=== PATIENT | male | born 1950 | race Caucasian/White ===

== ENCOUNTER → 2016-05-12 | Outpatient (CLI) | payer BC ==
[~2016-05-12] MED LIST: LISI10TA PO; PRLSR20 PO
== END | disposition home or self-care (01) ==
LOC: C.LAB1850 12:10
PROVIDERS: ATTEND Urology
DX: N40.1 Benign prostatic hyperplasia with lower urinary tract symptoms (principal)

== ENCOUNTER → 2016-05-16 | Outpatient (CLI) | payer BC | END | disposition home or self-care (01) | LOC: C.LABSPEC 17:14 | PROVIDERS: ATTEND Urology | DX: N52.9 Male erectile dysfunction, unspecified (principal); R82.99 Other abnormal findings in urine ==

== ENCOUNTER → 2016-07-21 | Outpatient (CLI) | payer BC ==
[2016-07-21 10:47] LABS: MEAN CELL VOLUME 93.8 fL (80-100); MEAN CORPUSCULAR HEMOGLOBIN 31.3 pg (25-34); MEAN CORPUSCULAR HGB CONC 33.4 g/dl (32-36); PLATELET COUNT 137 K/uL (130-400); RED BLOOD COUNT 4.69 M/uL (4.7-6.1); WHITE BLOOD COUNT 3.84 K/uL (4.8-10.8)
[2016-07-21 10:57] LABS: URINE APPEARANCE CLEAR (CLEAR); URINE BILIRUBIN NEG (NEG); URINE COLOR YELLOW; URINE EPITHELIAL CELL AUTO 0-5 /lpf (0-5); URINE NITRITE NEG (NEG); URINE SPECIFIC GRAVITY 1.022 (1.000-1.030); UROBILINOGEN NEG (NEG)
[2016-07-21 11:18] LABS: BLOOD UREA NITROGEN 18 mg/dl (7-18); CALCIUM 8.4 mg/dl (8.5-10.1); CARBON DIOXIDE 27 mmol/L (21-32); CHLORIDE 107 mmol/L (98-107); GLUCOSE 95 mg/dl (70-99); PHOSPHORUS 2.2 mg/dl (2.5-4.9); SODIUM 142 mmol/L (136-145)
[2016-07-21 11:25] LABS: URINE PROTIEN/CREAT RATIO 0.1 (0-0.2); URINE TOTAL PROTEIN 15.2 mg/dl (0-11.9)
[2016-07-21 11:27] LABS: MANUAL MICROSCOPIC REQUIRED? NO; REVIEW REQ? NO
== END | disposition home or self-care (01) ==
LOC: C.LAB1850 08:56
PROVIDERS: ATTEND Internal Medicine Nephrology
DX: I10 Essential (primary) hypertension (principal); R80.9 Proteinuria, unspecified; C67.9 Malignant neoplasm of bladder, unspecified; N18.2 Chronic kidney disease, stage 2 (mild); E55.9 Vitamin D deficiency, unspecified

== ENCOUNTER → 2017-01-24 | Outpatient (CLI) | payer BC ==
[2017-01-24 14:38] LABS: MEAN CELL VOLUME 94.3 fL (80-100); MEAN CORPUSCULAR HEMOGLOBIN 32.6 pg (25-34); MEAN CORPUSCULAR HGB CONC 34.6 g/dl (32-36); MEAN PLATELET VOLUME 11.6 fL (7.4-10.4); PLATELET COUNT 147 K/uL (130-400); RED BLOOD COUNT 4.88 M/uL (4.7-6.1); WHITE BLOOD COUNT 5.13 K/uL (4.8-10.8)
[2017-01-24 14:52] LABS: URINE APPEARANCE CLEAR (CLEAR); URINE BILIRUBIN NEG (NEG); URINE COLOR YELLOW; URINE EPITHELIAL CELL AUTO 0-5 /lpf (0-5); URINE NITRITE NEG (NEG); URINE PH 5.5 (4.5-7.5); URINE SPECIFIC GRAVITY 1.017 (1.000-1.030); UROBILINOGEN NEG (NEG)
[2017-01-24 14:54] LABS: MANUAL MICROSCOPIC REQUIRED? NO; REVIEW REQ? NO
[2017-01-24 14:57] LABS: BLOOD UREA NITROGEN 14 mg/dl (7-18); BUN/CREATININE RATIO 12.5 (10-20); CALCIUM 9.1 mg/dl (8.5-10.1); CARBON DIOXIDE 28 mmol/L (21-32); CHLORIDE 103 mmol/L (98-107); GLUCOSE 158 mg/dl (70-99); PHOSPHORUS 2.4 mg/dl (2.5-4.9); POTASSIUM 3.6 mmol/L (3.5-5.1); SODIUM 139 mmol/L (136-145)
[2017-01-24 15:03] LABS: CREATININE, URINE 89.5 mg/dl; URINE PROTIEN/CREAT RATIO 0.3 (0-0.2); URINE TOTAL PROTEIN 23.4 mg/dl (0-11.9)
== END | disposition home or self-care (01) ==
LOC: C.LAB1850 13:31
PROVIDERS: ATTEND Internal Medicine Nephrology
DX: I12.9 Hypertensive chronic kidney disease with stage 1 through stage 4 chronic kidney disease, or unspecified chronic kidney disease (principal); R80.9 Proteinuria, unspecified; N18.2 Chronic kidney disease, stage 2 (mild); E55.9 Vitamin D deficiency, unspecified

== ENCOUNTER → 2017-06-28 | Outpatient (CLI) | payer OTHER ==
[2017-06-28 13:21] LABS: HEMATOCRIT 42.6 % (42-52); HEMOGLOBIN 14.8 g/dL (14.0-18.0); MEAN CELL VOLUME 93.4 fL (80-100); MEAN CORPUSCULAR HEMOGLOBIN 32.5 pg (25-34); MEAN CORPUSCULAR HGB CONC 34.7 g/dl (32-36); MEAN PLATELET VOLUME 11.5 fL (7.4-10.4); PLATELET COUNT 159 K/uL (130-400); RED CELL DISTRIBUTION WIDTH CV 13.4 % (11.5-14.5); RED CELL DISTRIBUTION WIDTH SD 45.6 fL (36.4-46.3); WHITE BLOOD COUNT 6.21 K/uL (4.8-10.8)
[2017-06-28 13:50] LABS: BLOOD UREA NITROGEN 15 mg/dl (7-18); CALCIUM 9.9 mg/dl (8.5-10.1); CARBON DIOXIDE 26 mmol/L (21-32); CREATININE 0.95 mg/dl (0.60-1.40); GLUCOSE 90 mg/dl (70-99); POTASSIUM 3.8 mmol/L (3.5-5.1); SODIUM 137 mmol/L (136-145)
[2017-06-28 13:54] LABS: PHOSPHORUS 3.5 mg/dl (2.5-4.9)
== END | disposition home or self-care (01) ==
LOC: C.LAB1850 11:40
PROVIDERS: ATTEND Internal Medicine Nephrology
DX: N40.1 Benign prostatic hyperplasia with lower urinary tract symptoms (principal); I12.9 Hypertensive chronic kidney disease with stage 1 through stage 4 chronic kidney disease, or unspecified chronic kidney disease; R80.9 Proteinuria, unspecified; C67.9 Malignant neoplasm of bladder, unspecified; N18.2 Chronic kidney disease, stage 2 (mild); E55.9 Vitamin D deficiency, unspecified

== ENCOUNTER → 2017-07-05 | Outpatient (CLI) | payer OTHER | END | disposition home or self-care (01) | LOC: C.PATHSPEC 17:11 | PROVIDERS: ATTEND Urology | DX: C67.9 Malignant neoplasm of bladder, unspecified (principal) ==

== ENCOUNTER 2021-06-23 07:00 | Inpatient (IN) ==
--- NOTE | 2021-06-17 15:17 | Anesthesiology Consultation ---
Date of Service June 17, 2021 Assessment & Plan (1) Encounter for pre-operative examination: COVID screening: Per assessment on 06/17: Travel screen negative, no known COVID- 19 positive contacts or current COVID-19 related symptoms. Surgeon arranging preop COVID testing. Awaiting results. Chart Review Chart Review: Acceptable Risk for Surgery and Patient NOT seen in Pre Admission Testing History Surgery Operation Date: 06/23/21 08:40 Proposed Procedures p Open Repair Large Incisional Hernia Compartment Separation with Mesh - Harjit Donato MD, FACS Height/Weight Height: 6 ft 1 in Weight: 92.533 kg Allergies Allergy/AdvReac Type Severity Reaction Status Date / Time peanut Allergy Unknown ANAPHYLAXIS Verified 06/17/21 14:26 Medications Home Medications Medication Instructions Recorded Confirmed Last Taken Lactobacillus rhamnosus GG 20 1 cell PO QAM 03/03/21 06/17/21 Unknown billion cell capsule (Probiotic Digestive Care) atorvastatin 20 mg tablet 20 mg PO QAM 03/03/21 06/17/21 Unknown biotin 1 mg capsule 1 mg PO QAM 03/03/21 06/17/21 Unknown cholecalciferol (vitamin D3) 25 25 mcg PO QAM 03/03/21 06/17/21 Unknown mcg (1,000 unit) tablet epinephrine 0.1 mg/mL injection 0.1 mg SUBCUT Q30M PRN 03/03/21 06/17/21 Unknown syringe [id number]-[id number] C-Mn 500 1 cap PO QAM cap 03/03/21 06/17/21 Unknown mg-400 mg capsule (Glucosamine Chondroitin Maximum Strength) hydrochlorothiazide 25 mg tablet 25 mg PO QAM 03/03/21 06/17/21 Unknown magnesium 200 mg tablet 200 mg PO QAM 03/07/21 06/17/21 Unknown multivitamin 1 tab PO QAM 03/07/21 06/17/21 Unknown pantoprazole 40 mg tablet,delayed 40 mg PO QAM 03/07/21 06/17/21 Unknown release telmisartan 40 mg tablet 40 mg PO QAM 03/07/21 06/17/21 Unknown metronidazole 500 mg tablet 500 mg PO .COMPLEX #3 tab 06/07/21 06/17/21 Unknown neomycin 500 mg tablet 1 g PO .COMPLEX #6 tab 06/07/21 06/17/21 Unknown aspirin 325 mg tablet 325 mg PO QAM 06/17/21 06/17/21 Unknown metoprolol tartrate 50 mg tablet 50 mg PO BID 06/17/21 06/17/21 Unknown potassium 99 mg tablet 99 mg PO DAILY PRN 06/17/21 06/17/21 Unknown psyllium 1 packet PO QPM 06/17/21 06/17/21 Unknown vitamin E 400 unit tablet 400 unit PO QAM 06/17/21 06/17/21 Unknown Past Medical History Medical History Cancer Bladder Cardiac murmur "Slight" murmur GERD (gastroesophageal reflux disease) Hiatal hernia Hyperlipidemia Hypertension Stroke 10 years ago, no residual issues Past Family History Family History Father Family history of diabetes mellitus Mother Family history of diabetes mellitus Past Surgical History Surgical History History of bladder surgery r/t cancer History of colonoscopy 2021 History of esophagogastroduodenoscopy (EGD) History of herniorrhaphy UMBILICAL Social History Smoking Status: Former smoker Do You Dip or Chew Tobacco: No Smoking End Date: QUIT 24 YRS AGO Hx Alcohol Use: Yes alcohol intake frequency: holidays/special occasions only Hx Substance Use: No Lab Results Anesthesia Preop Results Results Anesthesia Widget: WBC 6.54 K/uL (4.8-10.8) 06/10/21 Hgb 14.9 g/dL (14.0-18.0) 06/10/21 Hct 42.3 % (42-52) 06/10/21 Plt 196 K/uL (130-400) 06/10/21 Na 138 mmol/L (136-145) 06/10/21 K 3.7 mmol/L (3.5-5.1) 06/10/21 Cl 103 mmol/L (98-107) 06/10/21 CO2 28 mmol/L (21-32) 06/10/21 BUN 17 mg/dl (6-23) 06/10/21 Creat 0.93 mg/dl (0.6-1.4) 06/10/21 Glucose Level 100 mg/dl (70-99(Fasting)) H 06/10/21 Testing Electrocardiogram Date: 06/10/21 SB at 50bpm. Rightward axis. Borderline criteria for old septal infarct. Chest X-Ray Date: 06/10/21 Findings: + NAD
[~2021-06-23 07:00] MED LIST changes: -LISI10TA PO; +LR 15ML/HR IV SCH; -PRLSR20 PO
[2021-06-23] MEDS ORDERED: MIDAZOLAM HCL 1 MG/ML 2ML VIAL ONE (07:27)
[2021-06-23] MEDS ORDERED: fentaNYL citrate 100 MCG/2 ML VIAL ONE (07:27)
[2021-06-23] MEDS ORDERED: ePHEDrine sulfate 50 MG/ML AMP IV PRN (08:06)
[2021-06-23] MEDS ORDERED: ONDANSETRON INJ 2 MG/ML 2 ML VIAL IV PRN ×2 (08:06→14:01)
[2021-06-23] MEDS ORDERED: HYDROmorphone INJ 2 MG/ML SYR/VIAL IV PRN (08:06)
[2021-06-23] MEDS ORDERED: ATROPINE SULFATE 0.1 MG/ML 10ML SYR IV PRN (08:06)
[2021-06-23] MEDS ORDERED: BUPIVACAINE 0.5 % 5 MG/1 ML MPF 30ML VIAL ONE (08:32)
[2021-06-23] MEDS ORDERED: LIDOCAINE 2% 2 ML VIAL/AMP(20MG/ML) INFIL ONE (08:32)
[2021-06-23] MEDS ORDERED: GELATIN SPONGE SZ 100 ONE (08:32)
[2021-06-23] MEDS ORDERED: PROPOFOL IV EMULSION 10 MG/ML 20 ML VIAL IV ONE (08:32)
--- NOTE | 2021-06-23 08:37 | History & Physical Bridge Note ---
Date of Service June 23, 2021 History & Physical Bridge Note I have examined the patient, reviewed the History & Physical and in the interval since the performance of the History & Physical I have noted the following changes of clinical significance: no changes noted pt marked SO at bedside all question answered
[2021-06-23] MEDS ORDERED: ceFAZolin 330 MG/ML 1 GM VIAL ONE (08:56)
[2021-06-23] MEDS ORDERED: NEOSTIGMINE METHYLSULFATE 1 MG/ML 10ML VIAL ONE (09:09)
[2021-06-23] MEDS ORDERED: ONDANSETRON INJ 2 MG/ML 2 ML VIAL ONE ×2 (09:09→11:38)
[2021-06-23] MEDS ORDERED: DEXAMETHASONE SOD INJ 4 MG/ML VIAL ONE (09:09)
[2021-06-23] MEDS ORDERED: GLYCOPYRROLATE 0.2 MG/ML VIAL ONE ×2 (09:09→10:37)
[2021-06-23] MEDS ORDERED: ROCURONIUM BROMIDE 10 MG/ML 5 ML VIAL IV ONE ×5 (09:09→10:54)
[2021-06-23] MEDS ORDERED: ePHEDrine sulfate 50 MG/ML SYR ONE (09:13)
[2021-06-23] MEDS ORDERED: HYDROmorphone INJ 2 MG/ML SYR/VIAL ONE (09:44)
--- NOTE | 2021-06-23 11:41 | Post Operative Brief Note ---
PG Immediate Post Op with CF Date of Surgery June 23, 2021 Pre & Post Diagnosis Operation Date: 06/23/21 08:40 Pre-Op Diagnosis: Large Incisional Hernia Post-Op Diagnosis: Large Incisional Hernia I identified the patient and participated in the time-out.: Yes Procedure Operation Date: 06/23/21 08:40 Actual Procedures p Open Repair Large Incisional Hernia Compartment Separation with Mesh(Not Applicable) - Harjit Donato MD, FACS Surgeon Harjit Donato MD, FACS Filterer b ramesh bray Estimated Blood Loss 100 Findings Consistent with Post-Op Diagnosis Specimens Specimen Description: Culture 1. Urine Drains Nick Drain (19Fr Nick Round Drains x2) and Hagen Catheter (inserted by ST Gena sterile technique maintained. )
--- NOTE | 2021-06-23 12:00 | Operative Report ---
Post Operative Report Pre & Post Diagnosis Operation Date: 06/23/21 08:40 Pre-Op Diagnosis: Large Incisional Hernia Post-Op Diagnosis: Large Incisional Hernia I identified the patient and participated in the time-out.: Yes Procedure Operation Date: 06/23/21 08:40 Actual Procedures p Open Repair Large Incisional Hernia Compartment Separation with Mesh(Not Applicable) - Harjit Donato MD, FACS Open repair possible fenestration of incisional hernia with Marlex mesh reinforcement compartment separation lysis of abdominal adhesions The patient was brought into the operating theater general trach anesthesia Hagen catheter inserted systemic antibiotics on board the abdomen was prepped Betadine scrub and solution properly draped the patient identified timeout was had we started making an incision in the most upper aspect and superior to the midline incision where we entered the peritoneal cavity actually in the falciform ligament there was no scar evident there but as we went to the subcutaneous tissue into the ligament we ran into some previous mesh placement once we entered this particular plane then we freed up the adhesions to the a nterior abdominal wall and continue making small incisions along the previous scar freeing up the adhesions as we went along pain particular attention not to enter the bowel once we had the abdominal wall off sufficiently enough and then we were asked lysed adhesions anteriorly and circumferentially to both areas of the abdomen will be on any previous incision once we had freed this up we noticed that the patient in the anterior abdominal wall mostly on the left side had multiple fenestrations about 2 to 3 cm most containing a significant amount of fatty tissue we freed that all to the point that once we were done we are faced with the abdominal wall without any adhesions to it with multiple fenestrations appreciated some subcutaneous bleeders were ligated with 2-0 silk at this point we are dealt with later very irregular fenestrated scar the mostly was the previous midline secondary to a cicatrix from VAC placement that the patient had when he had an open abdomen we then were freed up the anterior rectus bilaterally from most superior aspect around the epigastric area almost down to the symphysis pubis and we did this bilaterally. This point we then needed to freshen up the multiple fenestrations which we took that scar tissue along the edges so that we had fairly uniform fascia on both sides for the repair the patient at this point had a fairly loose abdominal wall inferiorly and superiorly for I elected to close with #1 PDS starting at the symphysis pubis almost near the umbilical area and one starting in the epigastric area superior to the umbilical area these were tension-free but then we were left with an area approximately 6 cm or so by 6 cm at most in this particular case I elected then to bring in preop the anterior rectus sheath on the left neck in a tension-free the midline and then freed up the posterior rectus sheath onto the right side of the umbilical area we then joined these 2 sheaths together with #1 PDS Bleeders throughout this procedure were controlled with sutures and ties. This point I wanted to put a 1 make sheet of Marlex and to reinforce it in the anterior aspect but unfortunately the one large sheet was not available in the OR and apparently further questioning it was discontinued therefore we used 2 sheets of 6 x 6 Marlex the first treat started by placing sutures with 2-0 Prolene at 3 o'clock position onto the anterior rectus sheath and 1 in 9 o'clock position in the anterior rectus sheath 1 in epigastric area we then with a running 2-0 Prolene we sutured the mesh after treatment appropriately to the anterior rectus sheath all the way to the epigastric area starting one at 3:00 yellow and was started at 9 o'clock position and similarly was taken to the 12 o'clock position the mesh was tension-free. We then brought the other shoe to 6 x 6 and sutured at 3 o'clock position as stay sutures at 9 o'clock position the stay sutures in the 6 o'clock position in a similar fashion we used 2-0 Prolene to tack this sheet onto the anterior rectus sheath all the way down to the midline of the symphysis pubis and to the right. Each quadrant of the mesh was sutured with a continuous 2-0 Prolene suture. Then we were able then to unite the 2 pieces of mesh from 3 to 9 o'clock position actually overlapping of about a centimeter at most and we used that 2-0 Prolene to suture 1 from 3 and 1-9 starting and tied in the middle having accomplished this we then used multiple tacking suture from the mesh to the anterior rectus sheath in the midline another fascia. whn we are down there we used 2 pieces of Marlex 6 x 6 inches cut appropriately be to tension free we then drained on top of the mesh with 219 round Nick drains through stab wounds on both sides of the lower quadrant we then tacked the and rigo for skin edges dressing was applied fatty tissue onto the mesh with interrupted Vicryl suture in multiple areas then continuous 2-0 Vicryl procedure was tolerated well estimate blood loss 100 cc Addendum Dean bray was present throughout the case and helped the retraction exposure and wound closure addendum talked with his family at [phone] We used voice recognition Simpli.fion for this dictation Surgeon Harjit Donato MD, FACS Stiff Leg Operator luis bray Estimated Blood Loss 100 Findings Consistent with Post-Op Diagnosis Multiple fenestrated hernias adhesions Specimens None given Complications We were unable to find a very large piece of mesh we ended up using 2 pieces of 6 x 6 inches Indications Enlarging abdominal wall hernias would increase discomfort Description of Procedure merda I attest to the content of the Intraoperative Record and any orders documented therein. Any exceptions are noted below.
[2021-06-23] MEDS: fentaNYL citrate 100 MCG/2 ML VIAL IV PRN ×2 (13:03→13:10)
--- NOTE | 2021-06-23 13:38 | Anesthesiology Progress Note ---
Date of Service June 23, 2021 Anesthesia Post Procedure Vital Signs Vital Signs: Temp Pulse Pulse Resp BP Pulse Ox 06/23/21 13:20 57 L 12 138/81 96 06/23/21 13:05 92 H 22 149/87 H 97 06/23/21 12:50 36.5 C 79 19 143/92 H 97 06/23/21 12:40 83 18 133/61 98 06/23/21 12:30 79 13 119/76 96 06/23/21 12:20 86 23 131/88 99 06/23/21 12:10 73 14 132/79 99 06/23/21 12:01 36.9 C 80 19 133/90 96 06/23/21 07:21 36.9 C 52 L 20 144/87 H 100 Pain Intensity Abdomen: Pain Intensity: 6 Transfer of Care Handoff Completed per policy Notes Mental Status: alert / awake / arousable and participated in evaluation Patient Amnestic to Procedure: Yes Nausea / Vomiting: adequately controlled Pain: adequately controlled Airway Patency, RR, SpO2: stable & adequate BP & HR: stable & adequate Hydration State: stable & adequate Anesthetic Complications: no major complications apparent and Pt Satisfied with anesthetic care
[2021-06-23] MEDS ORDERED: NALOXONE HCL 0.4 MG/1 ML VIAL/CARP IV PRN (14:01)
[2021-06-23] MEDS: LACTATED RINGER'S 1,000 ML IV SCH ×2 (14:44→22:42)
[2021-06-23] MEDS: MoRPHine SULFATE PCA 30 MG/30 ML IV PRN (15:14)
[2021-06-23] MEDS: SODIUM CHLORIDE 0.9% 1000ML 1,000 ML IV SCH (15:14)
[2021-06-23] MEDS: ACETAMINOPHEN 1,000 MG/100 ML VIAL IV SCH ×2 (16:23→22:41)
[2021-06-23] MEDS: ceFAZolin 2000MG 2,000 MG/15 ML SYR IV SCH (16:23)
[2021-06-23] MEDS: METOPROLOL TARTRATE 50 MG TAB PO SCH (21:15)
[2021-06-24] MEDS: ceFAZolin 2000MG 2,000 MG/15 ML SYR IV SCH ×2 (00:05→08:19)
[2021-06-24] MEDS: LACTATED RINGER'S 1,000 ML IV SCH ×3 (06:34→22:24)
[2021-06-24] MEDS: ACETAMINOPHEN 1,000 MG/100 ML VIAL IV SCH ×3 (06:36→22:24)
[2021-06-24 06:59] LABS: Basophils # (auto) 0.02 K/uL (0-0.2); Basophils % (auto) 0.1 %; Eosinophils # (auto) 0.01 K/uL (0-0.5); Eosinophils % (auto) 0.1 %; Hematocrit (blood only) 36.2 % (42-52); Hemoglobin 12.5 g/dL (14.0-18.0); Immature Granulocytes # (auto) 0.02 K/uL (0.00-0.02); Immature Granulocytes % (auto) 0.1 %; Lymphocytes # (auto) 1.19 K/uL (1.2-3.4); Lymphocytes % (auto) 8.8 %; Mean Corpuscular Hemoglobin 31.5 pg (25-34); Mean Corpuscular Hgb Conc 34.5 g/dL (32-36); Mean Corpuscular Volume 91.2 fL (80-100); Mean Platelet Volume 10.6 fL (7.4-10.4); Monocytes # (auto) 1.89 K/uL (0.11-0.59); Monocytes % (auto) 13.9 %; Neutrophils # (auto) 10.45 K/uL (1.4-6.5); Platelet Count 209 K/uL (130-400); RDW Coefficient of Variation 13.2 % (11.5-14.5); RDW Standard Deviation 44.2 fL (36.4-46.3); Red Blood Count 3.97 M/uL (4.7-6.1); White Blood Count 13.58 K/uL (4.8-10.8)
[2021-06-24 07:06] LABS: BUN Creatinine Ratio 17.6 (10-20); Calcium 8.5 mg/dl (8.5-10.1); Creatinine Clr Calc Pharmacy 81.4 ml/min; Est GFR (African American) 81.3 ml/min; Est GFR (Non-African American) 70.2 ml/min
--- NOTE | 2021-06-24 07:51 | Surgery Progress Note ---
Date of Service June 24, 2021 Assessment & Plan (1) Hernia, incisional: Plan: POD#1 large incisional hernia repair with component separation and mesh placement -WBC 13.5, Hbg 12.5. VSS on 2L nasal cannula -NGT output 90cc brown drainage, will remove today -Incision c/d/i, dressing changed. Continue abdominal binder and TYSON drain x2 -Ribera catheter with blood tinged urine w/ some clots. Appears to be draining okay. Pt has a history of bladder ca in 1997 w/ surgical removal of tumor and undergoes yearly cystoscopy. Pt is apparently due for one. Will request urological consultation for their input -Will hold off on heparin prophylaxis for today given intraop oozing and bloody urine. Continue SCDs. Encourage ambulation -May consider clear liquids later today -Continue Tylenol and LEAN MANUFACTURING SPECIALIST for pain -Pt seen/examined with Dr. Donato Admission and Anticipated Discharge Date Admission Date: June 23, 2021 Subjective Patient feeling okay. Has some blood clots in his ribera, concerned due to history of bladder ca. He is thirsty. Has not been out of bed yet. Physical Exam Physical Exam: awake/alert Gastrointestinal (Abdomen): Inspection/Auscultation: + abdominal surgical incision (midline incision w/ rigo, scant bloody drainage) and + abdominal surgical drain present (TYSON x2 with bloody drainage); abdomen not distended Percussion/Palpation: + abdomen tender and abdomen soft ribera w/ blood tinged urine, some + clots. NGT in place Results & Data ([facility]) Vital Signs (Past 12 Hours) Vital Signs Temp Pulse Resp BP Pulse Ox 06/24/21 04:10 75 19 126/80 96 06/24/21 03:28 36.6 C 77 18 138/80 99 06/23/21 23:06 36.6 C 70 14 124/73 98 06/23/21 21:12 36.6 C 106 H 20 132/81 98 PG Care Time/CCT Total # of Minutes Spent Total Time Spent with Patient: Total time spent is greater than 50% in coordination of care (as documented) at patient's floor/unit and/or counseling patient: Coding Level of Care Code None Diagnoses Hernia, incisional K43.2
[2021-06-24] MEDS: METOPROLOL TARTRATE 50 MG TAB PO SCH ×2 (08:19→20:04)
[2021-06-24] MEDS: PANTOprazole 40 MG TAB PO SCH (08:19)
--- NOTE | 2021-06-24 09:19 | Urology Consultation ---
Date of Consultation June 24, 2021 Assessment & Plan (1) Hematuria: 70 year old male with past medical history of bladder cancer s/p TURBT in 1997 admitted for elective incisional hernia repair; subsequently developed hematuria with clots. - Urology consulted for hematuria/clots, hx of bladder cancer s/p TURBT in 1997 without recurrence. - Plan of care reviewed with Dr. Meza, urologist cement contractor. - He has been monitored with surveillance cystoscopies every other year, last cysto in July 2019 per his report (negative). - Ribera intact, patent and draining appropriately, urine has cleared at time of my exam. - Recommend continue to monitor at present. - If urine remains clear throughout the day, then can do voiding trial later today or tomorrow. - Recommend post void residual bladder scan post catheter removal and then bladder scan prn. - Urine culture pending, follow culture and treat if indicated. - Given hematuria has cleared, no acute intervention warranted at this time. - Recommend cystoscopy outpatient for further evaluation of hematuria in context of bladder CA hx. He is also due for surveillance. - Will arrange outpatient follow-up with our service for cystoscopy. - Discussed with patient and he is agreeable with the plan, all questions answered. - will sign off, please contact us with any further questions or concerns. History of Present Illness Reason for Consultation: h/o bladder ca in 1997, blood clots in ribera Requesting Physician: Dr. Donato Attending Physician: Harjit Donato MD, [facility] History of Present Illness 70 year old male with past medical history of bladder cancer s/p TURBT in 1997, incisional hernia, hypertension, hyperlipidemia, and GERD admitted for elective incisional hernia repair. Patient is POD#1 s/p elective open repair large incisional compartment separation with mesh with Dr. Donato. Urology consulted for blood clots in ribera, hx of bladder cancer. Patient is known to our service, follows with Dr. Shankar, last visit was July 2018. He has history of low grade bladder cancer s/p TURBT in 1997. He did BCG treatments post surgery in [id number]. He has had no recurrence since that time. He is monitored with every other year surveillance cystoscopies. His last cystoscopy with our practice was in July 2017, negative. He reports his last cystoscopy was in July 2019 in [place], negative per his report. Chart review: Afebrile Creatinine 1.08 WBC 13.58 Hgb 12.5 Urine culture pending He is on Ancef post-operatively Patient seen and examined at bedside this AM. He is awake, alert and resting in bed. Subjectively feeling okay. Ribera catheter intact, patent and draining clear yellow urine in tubing, maroon urine with small clots and sediment noted in collection bag. Tolerating catheter. No dysuria. No suprapubic or flank pain. He has some incisional discomfort on abdomen. No nausea or vomiting. No fever or chills. Offers no additional complaints at this time. Allergies Allergy/AdvReac Type Severity Reaction Status Date / Time peanut Allergy Unknown ANAPHYLAXIS Verified 06/23/21 07:27 Home Medications Medication Instructions Recorded Confirmed Type Lactobacillus rhamnosus GG 20 1 cell PO QAM 03/03/21 06/23/21 History billion cell capsule (Probiotic Digestive Care) atorvastatin 20 mg tablet 20 mg PO QAM 03/03/21 06/23/21 History biotin 1 mg capsule 1 mg PO QAM 03/03/21 06/23/21 History cholecalciferol (vitamin D3) 25 25 mcg PO QAM 03/03/21 06/23/21 History mcg (1,000 unit) tablet epinephrine 0.1 mg/mL injection 0.1 mg SUBCUT Q30M PRN 03/03/21 06/23/21 History syringe [id number]-iyzzjsmjw-rax C-Mn 500 1 cap PO QAM cap 03/03/21 06/23/21 History mg-400 mg capsule (Glucosamine Chondroitin Maximum Strength) hydrochlorothiazide 25 mg tablet 25 mg PO QAM 03/03/21 06/23/21 History magnesium 200 mg tablet 200 mg PO QAM 03/07/21 06/23/21 History multivitamin 1 tab PO QAM 03/07/21 06/23/21 History pantoprazole 40 mg tablet,delayed 40 mg PO QAM 03/07/21 06/23/21 History release telmisartan 40 mg tablet 40 mg PO QAM 03/07/21 06/23/21 History metronidazole 500 mg tablet 500 mg PO .COMPLEX #3 tab 06/07/21 06/23/21 Rx neomycin 500 mg tablet 1 g PO .COMPLEX #6 tab 06/07/21 06/23/21 Rx aspirin 325 mg tablet 325 mg PO QAM 06/17/21 06/23/21 History metoprolol tartrate 50 mg tablet 50 mg PO BID 06/17/21 06/23/21 History potassium 99 mg tablet 99 mg PO DAILY PRN 06/17/21 06/23/21 History psyllium 1 packet PO QPM 06/17/21 06/23/21 History vitamin E 400 unit tablet 400 unit PO QAM 06/17/21 06/23/21 History Patient History Medical History Cancer Bladder Cardiac murmur "Slight" murmur GERD (gastroesophageal reflux disease) Hiatal hernia Hyperlipidemia Hypertension Stroke 10 years ago, no residual issues Surgical History History of bladder surgery r/t cancer History of colonoscopy 2021 History of esophagogastroduodenoscopy (EGD) History of herniorrhaphy UMBILICAL History of incisional hernia repair (06/23/21) p Open Repair Large Incisional Hernia Compartment Separation with Mesh(Not Applicable) - Harjit Donato MD, FACS Open repair possible fenestration of incisional hernia with Marlex mesh reinforcement compartment separation lysis of abdominal adhesions 06/23/2021 Family History Father Family history of diabetes mellitus Mother Family history of diabetes mellitus Social History Smoking Status: Former smoker Second Hand Exposure: No; Hx Alcohol Use: Yes Hx Substance Use: No Preferred Language: Mozambican Communication Ability: Effective Occupational Nurse Required: No Beliefs That Will Affect Care: None Current Living Situation: Spouse and Family current occupational status: employed 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 occupation: RETIRED/WOR[employer] Feels Safe at Home: Yes Assistive Devices: None Review of Systems Constitutional: as per Subjective / HPI Eyes: no problem reported Ear, Nose, Mouth, Throat: no problem reported Respiratory: no problem reported Cardiovascular: no problem reported Gastrointestinal: as per Subjective / HPI Genitourinary: + as per Subjective / HPI Musculoskeletal: no problem reported Neurologic: no problem reported Psychiatric: no problem reported Physical Exam Constitutional: well developed and well nourished; no acute distress and not ill appearing Eyes: no scleral abnormality Neck: normal visual inspection Respiratory: normal respiratory effort; no respiratory distress and no labored breathing Cardiovascular: Extremities: no pedal edema Gastrointestinal (Abdomen): Inspection/Auscultation: abdomen not distended Percussion/Palpation: + abdomen tender (mildly tender near incision) and abdomen soft TYSON x 2 Musculoskeletal: Head/Neck/Chest: normocephalic and head atraumatic Skin: surgical dressings C/D/I Neurologic: moves all extremities and awake Psychiatric: Orientation: alert and oriented x 3 Genitourinary: Ribera catheter intact, patent and draining clear yellow urine in tubing, maroon urine with small clots and sediment noted in collection bag. Results & Data ([facility]) Vital Signs (Past 12 Hours) Vital Signs Temp Pulse Pulse Resp BP Pulse Ox 06/24/21 07:30 36.9 C 84 20 137/84 99 06/24/21 04:10 75 19 126/80 96 06/24/21 03:28 36.6 C 77 18 138/80 99 06/23/21 23:06 36.6 C 70 14 124/73 98 PG Care Time/CCT Total # of Minutes Spent Total Time Spent with Patient: Total time spent is greater than 50% in coordination of care (as documented) at patient's floor/unit and/or counseling patient: Coding Level of Care Code 10194 Initial Inpt Care Lvl 2 Diagnoses Hematuria R31.9
[2021-06-24] MEDS: SODIUM CHLORIDE 0.9% 1000ML 1,000 ML IV SCH (10:10)
[2021-06-24] MEDS: MoRPHine SULFATE PCA 30 MG/30 ML IV PRN (22:37)
[2021-06-25] MEDS: LACTATED RINGER'S 1,000 ML IV SCH ×3 (04:46→23:38)
[2021-06-25] MEDS: ACETAMINOPHEN 1,000 MG/100 ML VIAL IV SCH (04:48)
--- NOTE | 2021-06-25 06:24 | Surgery Progress Note ---
Date of Service June 25, 2021 Assessment & Plan (1) Hernia, incisional: Plan: Status post repair of incisional hernia on 06/23/2021 (postop day #2) Maintain patient on clear liquids for the present time as he does not feel hungry and has not had return of bowel function Continue TYSON drains Encourage use of incentive spirometer Encourage ambulation Continue analgesics Continue antiemetics Patient developed hematuria and has been seen by urology. Voiding trial recommended either today or tomorrow We will use SCDs for DVT prophylaxis for the present time. We will hold on any chemical means due to hematuria that developed postoperatively Admission and Anticipated Discharge Date Admission Date: June 23, 2021 Supervising Physician Co-Signing Physician Notes I personally saw and evaluated the patient with Ki Menon PA-C and agree with the assessment and plan. 70-year-old male postoperative day 2 open antral hernia repair He is slightly distended and has no flatus or bowel movement, will continue clear liquids for today TYSON drains do have some old blood/clot in them and he does have some bruising at the incision site Hemoglobin is 9.7 from 12.5, no tachycardia or hypotension will repeat in the a.m. and monitor drain output We will DC the Hagen today and trial voiding, he has had no more hematuria We will hold any pharmacologic DVT prophylaxis due to his recent hematuria and bloody TYSON drain output Encourage ambulation and incentive spirometry We will continue the TURBINE ROOM ATTENDANT for now for pain control Subjective Patient is resting comfortably in bed. He denies any chest pain or shortness of breath. He denies any fevers, shakes, chills. He denies any worsening abdominal pain. He notes that he tolerated clear liquids yesterday without any nausea or vomiting or worsening abdominal pain. Since his surgery he has not had a bowel movement or passed any flatus. He says he has ambulated minimally since his surgery. Physical Exam Gastrointestinal (Abdomen): Abdomen is slightly firm with mild distention. Bowel sounds are hypoactive. There is appropriate pain with palpation secondary to surgery. TYSON drains are in place draining serosanguineous fluid and have drained 10 and 7 cc over the last shift respectively. Results & Data ([facility]) Vital Signs (Past 12 Hours) Vital Signs Temp Pulse Resp BP Pulse Ox 06/24/21 23:56 37 C 75 18 135/74 97 PG Care Time/CCT Total # of Minutes Spent Total Time Spent with Patient: Total time spent is greater than 50% in coordination of care (as documented) at patient's floor/unit and/or counseling patient: Coding Level of Care Code None Diagnoses Hernia, incisional K43.2
[2021-06-25 07:22] LABS: Basophils # (auto) 0.01 K/uL (0-0.2); Basophils % (auto) 0.1 %; Eosinophils # (auto) 0.13 K/uL (0-0.5); Eosinophils % (auto) 1.4 %; Hemoglobin 9.7 g/dL (14.0-18.0); Immature Granulocytes # (auto) 0.03 K/uL (0.00-0.02); Immature Granulocytes % (auto) 0.3 %; Lymphocytes # (auto) 0.98 K/uL (1.2-3.4); Lymphocytes % (auto) 10.4 %; Mean Corpuscular Hemoglobin 30.8 pg (25-34); Mean Corpuscular Hgb Conc 33.4 g/dL (32-36); Mean Corpuscular Volume 92.1 fL (80-100); Mean Platelet Volume 10.5 fL (7.4-10.4); Monocytes # (auto) 1.39 K/uL (0.11-0.59); Monocytes % (auto) 14.8 %; Neutrophils # (auto) 6.88 K/uL (1.4-6.5); Platelet Count 162 K/uL (130-400); RDW Coefficient of Variation 13.7 % (11.5-14.5); Red Blood Count 3.15 M/uL (4.7-6.1); White Blood Count 9.42 K/uL (4.8-10.8)
[2021-06-25 07:49] LABS: BUN Creatinine Ratio 20.3 (10-20); Calcium 8.2 mg/dl (8.5-10.1); Creatinine Clr Calc Pharmacy 111.3 ml/min; Est GFR (African American) 106.9 ml/min; Est GFR (Non-African American) 92.3 ml/min; Potassium 3.8 mmol/L (3.5-5.1)
[2021-06-25] MEDS: METOPROLOL TARTRATE 50 MG TAB PO SCH ×2 (08:07→19:51)
[2021-06-25] MEDS: PANTOprazole 40 MG TAB PO SCH (08:08)
[2021-06-25] MEDS: SODIUM CHLORIDE 0.9% 1000ML 1,000 ML IV SCH (09:31)
[2021-06-25 10:25] LABS: INR 1.1 (0.9-1.1); Partial Thromboplastin Time 27.1 Seconds (21.0-31.0); Prothrombin Time 11.4 Seconds (9.0-12.0)
[2021-06-25 15:05] LABS: Hematocrit (blood only) 27.5 % (42-52); Hemoglobin 9.2 g/dL (14.0-18.0)
[2021-06-26 06:13] LABS: Basophils # (auto) 0.02 K/uL (0-0.2); Basophils % (auto) 0.3 %; Eosinophils # (auto) 0.42 K/uL (0-0.5); Eosinophils % (auto) 5.7 %; Hematocrit (blood only) 23.9 % (42-52); Immature Granulocytes # (auto) 0.01 K/uL (0.00-0.02); Immature Granulocytes % (auto) 0.1 %; Lymphocytes # (auto) 0.94 K/uL (1.2-3.4); Lymphocytes % (auto) 12.7 %; Mean Corpuscular Hemoglobin 30.9 pg (25-34); Mean Corpuscular Hgb Conc 33.5 g/dL (32-36); Mean Corpuscular Volume 92.3 fL (80-100); Mean Platelet Volume 10.1 fL (7.4-10.4); Monocytes # (auto) 0.99 K/uL (0.11-0.59); Monocytes % (auto) 13.4 %; Neutrophils % (auto) 67.8 %; Platelet Count 133 K/uL (130-400); RDW Coefficient of Variation 13.4 % (11.5-14.5); RDW Standard Deviation 45.4 fL (36.4-46.3); Red Blood Count 2.59 M/uL (4.7-6.1); White Blood Count 7.38 K/uL (4.8-10.8)
--- NOTE | 2021-06-26 06:28 | Surgery Progress Note ---
Date of Service June 26, 2021 Assessment & Plan (1) Hernia, incisional: Plan: Status post repair of incisional hernia on 06/23/2021 (postop day #3) We will continue patient on clear liquids for the present time until abdominal exam has improved Continue TYSON drains Continue use of incentive spirometry Continue ambulation and increase as able Continue analgesics Continue antiemetics Patient had Hagen catheter placed due to hematuria postoperatively. Initially voiding trial was to be performed yesterday but the decision was made to keep patient's Hagen catheter in place. At the present time it is draining clear urine. Will discuss with attending timing of voiding trial The patient was noted to have low-grade fever over the past evening. We will check a urinalysis and culture and treat accordingly. If fevers persist we will pursue additional evaluation for this issue. Postop anemia is noted. Patient has had approximately 1 g drop in his hemoglobin over the past 24 hours. We will repeat labs in the morning We will use SCDs for DVT prophylaxis for the present time. We will hold on any chemical means due to hematuria that developed postoperatively along with patient's drop in hemoglobin Admission and Anticipated Discharge Date Admission Date: June 23, 2021 Supervising Physician Co-Signing Physician Notes I personally saw and evaluated the patient with Ki Menon PA-C and agree with the assessment and plan. 70-year-old male postoperative day 3 open antral hernia repair Continue clears His hemoglobin is slowly dropping but drain output has also decreased Keep Hagen in place due to swelling of the scrotum and penis Continue to monitor his vitals, no hypotension or tachycardia currently Encourage ambulation and incentive spirometry Pain control with HR OPERATIONS ADVISOR Subjective Patient is resting comfortably in bed. He says he is passing a small amount of flatus but has not had a bowel movement since surgery. He denies any nausea or vomiting. He notes he is tolerating clears without exacerbating any worsening abdominal pain. He notes that his postoperative abdominal pain has improved. Physical Exam Gastrointestinal (Abdomen): Abdomen remains mildly distended. There is pain with palpation near surgical incision. Bowel sounds are hypoactive. TYSON drains are in place and have drained 43 and 12 cc of serosanguineous fluid respecti vely. Results & Data ([facility]) Vital Signs (Past 12 Hours) Vital Signs Temp Pulse Resp BP Pulse Ox 06/26/21 03:13 37.6 C H 106 H 17 142/76 H 94 06/25/21 22:54 37.8 C H 88 18 130/76 95 06/25/21 19:38 37.7 C H 116 H 16 137/83 96 PG Care Time/CCT Total # of Minutes Spent Total Time Spent with Patient: Total time spent is greater than 50% in coordination of care (as documented) at patient's floor/unit and/or counseling patient: Coding Level of Care Code None Diagnoses Hernia, incisional K43.2
[2021-06-26 06:35] LABS: BUN Creatinine Ratio 13.6 (10-20); Creatinine Clr Calc Pharmacy 133.2 ml/min; Est GFR (African American) 115.1 ml/min; Est GFR (Non-African American) 99.3 ml/min; Potassium 3.6 mmol/L (3.5-5.1)
[2021-06-26] MEDS: LACTATED RINGER'S 1,000 ML IV SCH (08:38)
[2021-06-26] MEDS: PANTOprazole 40 MG TAB PO SCH (08:40)
[2021-06-26] MEDS: METOPROLOL TARTRATE 50 MG TAB PO SCH ×2 (08:40→19:24)
[2021-06-26 09:43] LABS: Appearance Urine Clear (Clear); Bacteria Urine Automated Negative (Negative); Bilirubin Urine Negative (Negative); Blood Urine 2+ (Negative); Color Urine Yellow; Glucose Urine UA Negative (Negative); Ketones Urine Trace (Negative); Leukocyte Esterase Urine Negative (Negative); Nitrite Urine Negative (Negative); Specific Gravity Urine 1.013 (1.000-1.030); Urobilinogen Urine Negative (Negative); pH Urine 7.5 (4.5-7.5)
[2021-06-26 09:47] LABS: Protein Urine Trace (Negative)
--- NOTE | 2021-06-26 10:08 | XRay Report ---
XR chest 1V portable CLINICAL HISTORY: Fever, postoperative TECHNIQUE: Single frontal radiograph of the chest was obtained. Comparison: Comparison is made to chest 2 views 06/10/2021 FINDINGS: No lines and tubes are seen. The cardiomediastinal silhouette is normal. The lungs are clear. Minimal blunting of the left costophrenic angle may represent atelectasis or small left pleural effusion. IMPRESSION: Atelectasis versus trace left pleural effusion. No evidence of pneumonia. ACT 112: Negative or not required by law. Electronically signed by: Rob Toscano M.D. 06/26/2021 10:07 AM
[2021-06-26] MEDS: SODIUM CHLORIDE 0.9% 1000ML 1,000 ML IV SCH (17:33)
[2021-06-27 06:26] LABS: Basophils # (auto) 0.01 K/uL (0-0.2); Basophils % (auto) 0.2 %; Eosinophils # (auto) 0.59 K/uL (0-0.5); Eosinophils % (auto) 9.9 %; Hematocrit (blood only) 23.4 % (42-52); Immature Granulocytes # (auto) 0.02 K/uL (0.00-0.02); Immature Granulocytes % (auto) 0.3 %; Lymphocytes # (auto) 0.82 K/uL (1.2-3.4); Lymphocytes % (auto) 13.7 %; Mean Corpuscular Hemoglobin 31.3 pg (25-34); Mean Corpuscular Volume 91.4 fL (80-100); Mean Platelet Volume 10.1 fL (7.4-10.4); Monocytes # (auto) 0.56 K/uL (0.11-0.59); Monocytes % (auto) 9.4 %; Neutrophils # (auto) 3.97 K/uL (1.4-6.5); Neutrophils % (auto) 66.5 %; Platelet Count 116 K/uL (130-400); RDW Coefficient of Variation 13.5 % (11.5-14.5); RDW Standard Deviation 44.4 fL (36.4-46.3); Red Blood Count 2.56 M/uL (4.7-6.1); White Blood Count 5.97 K/uL (4.8-10.8)
[2021-06-27 06:27] LABS: Mean Corpuscular Hgb Conc 34.2 g/dL (32-36)
[2021-06-27] MEDS ORDERED: MoRPHine SULFATE 2 MG/ML CARP IV PRN (07:34)
[2021-06-27] MEDS ORDERED: oxyCODONE/ACETAMINOPHEN 5mg/325mg TAB PO PRN (07:34)
[2021-06-27] MEDS: METOPROLOL TARTRATE 50 MG TAB PO SCH ×2 (07:48→20:35)
[2021-06-27] MEDS: PANTOprazole 40 MG TAB PO SCH (07:48)
[2021-06-27] MEDS: oxyCODONE/ACETAMINOPHEN 5mg/325mg TAB PO PRN ×3 (07:59→20:46)
--- NOTE | 2021-06-27 08:52 | Surgery Progress Note ---
Date of Service June 27, 2021 Assessment & Plan (1) Hernia, incisional: Plan: POD 4 hernia repair/component separation seen with Dr. 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 remove ribera H&H stable Admission and Anticipated Discharge Date Admission Date: June 23, 2021 Subjective passing flatus, less pain Physical Exam Gastrointestinal (Abdomen): Inspection/Auscultation: + abdominal wall ecchymosis (RLQ stable), + abdominal surgical incision (clean, dry) and + abdominal surgical drain present (decreasing drainage); abdomen not distended Percussion/Palpation: abdomen soft Genitourinary: + scrotal ecchymosis and + scrotal swelling Results & Data ([facility]) Vital Signs (Past 12 Hours) Vital Signs Temp Pulse Resp BP Pulse Ox 06/27/21 08:00 36.5 C 91 H 16 142/87 H 95 06/27/21 03:51 37.0 C 87 20 147/86 H 97 06/26/21 23:26 37.8 C H 88 20 131/69 95 PG Care Time/CCT Total # of Minutes Spent Total Time Spent with Patient: Total time spent is greater than 50% in coordination of care (as documented) at patient's floor/unit and/or counseling patient: Coding Level of Care Code None Diagnoses Hernia, incisional K43.2
[2021-06-28] MEDS: oxyCODONE/ACETAMINOPHEN 5mg/325mg TAB PO PRN ×3 (01:40→15:29)
[2021-06-28] MEDS ORDERED: bisacodyL 10 MG SUPP PR ONE (06:28)
[2021-06-28] MEDS ORDERED: bisacodyL 10 MG SUPP PR PRN (06:35)
--- NOTE | 2021-06-28 06:35 | Surgery Progress Note ---
Date of Service June 28, 2021 Assessment & Plan (1) Hernia, incisional: Plan: POD#5 Overall doing well will give a suppository this morning hopefully entice a bowel movement He is mobilizing fluids diuresing very well No problems voiding since the catheter came out and has less scrotal and pedal edema and resolving ecchymosis We will reevaluate him later today once the patient has a bowel movement he can certainly go home and this was discussed with him regarding his activities We will recheck a hemoglobin this morning POD 4 hernia repair/component separation seen with Dr. 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) Vital Signs (Past 12 Hours) Vital Signs Temp Pulse Pulse Resp BP Pulse Ox 06/27/21 22:56 37.5 C 86 18 125/72 98 06/27/21 20:36 37.7 C H 108 H 19 150/86 H 98 PG Care Time/CCT Total # of Minutes Spent Total Time Spent with Patient: Total time spent is greater than 50% in coordination of care (as documented) at patient's floor/unit and/or counseling patient: Coding Level of Care Code None Diagnoses Hernia, incisional K43.2
[2021-06-28 07:37] LABS: Basophils # (auto) 0.01 K/uL (0-0.2); Basophils % (auto) 0.1 %; Eosinophils # (auto) 0.79 K/uL (0-0.5); Eosinophils % (auto) 11.8 %; Hematocrit (blood only) 25.5 % (42-52); Hemoglobin 8.8 g/dL (14.0-18.0); Immature Granulocytes # (auto) 0.03 K/uL (0.00-0.02); Immature Granulocytes % (auto) 0.4 %; Mean Corpuscular Hemoglobin 31.8 pg (25-34); Mean Corpuscular Hgb Conc 34.5 g/dL (32-36); Mean Corpuscular Volume 92.1 fL (80-100); Mean Platelet Volume 10.3 fL (7.4-10.4); Monocytes # (auto) 0.87 K/uL (0.11-0.59); Neutrophils % (auto) 65.7 %; Platelet Count 149 K/uL (130-400); RDW Coefficient of Variation 13.7 % (11.5-14.5); RDW Standard Deviation 45.4 fL (36.4-46.3); Red Blood Count 2.77 M/uL (4.7-6.1)
[2021-06-28] MEDS: METOPROLOL TARTRATE 50 MG TAB PO SCH (08:58)
[2021-06-28] MEDS: PANTOprazole 40 MG TAB PO SCH (08:58)
--- NOTE | 2021-07-05 11:34 | Discharge Summary ---
Date of Service June 29, 2021 Principal Diagnosis Large/multiple incisional hernias Discharge Exam Constitutional WD/WN, vitals as above Gastrointestinal (Abdomen) Inspection/Auscultation: + abdominal wall ecchymosis and + abdominal surgical incision (clean, dry); abdomen not distended Percussion/Palpation: abdomen soft Discharge Data Allergies Allergy/AdvReac Type Severity Reaction Status Date / Time peanut Allergy Unknown ANAPHYLAXIS Verified 06/23/21 07:27 Consultations 06/24/21 07:37 Consult Urology Routine Procedures Performed Operation Date: 06/23/21 08:40 Actual Procedures p Open Repair Large Incisional Hernia Compartment Separation with Mesh(Not Applicable) - Harjit Donato MD, FACS Hospital Course (1) Hernia, incisional: 70 y/o male was taken to the operating room for repair of large hernia with component separation and transferred to the surgical floor. He had a drift in Hgb over the first few day but equilibrated at 9 and 26 and did not require transfusion. He did have some ecchymosis of the abdominal wall as expected from the component separation. He also had some hematuria with ribera placement that cleared but he was seen by urology with plans to follow-up as an outpatient. He was kept on IV antibiotics and the drains were removed on POD 4. His diet was slowly advanced. Once he was moving his bowels he stable for discharge on POD 5. His H&H had remained stable as well as his abdominal wall ecchymosis. Hematuria had resolved. Total Time Total Time Spent Total Time Spent (In Minutes): 15 Discharge Plan Discharge Items Patient Disposition: Home - Self-Care Reason For Visit: Large Incisional Hernia Discharge Diagnosis: incisional hernia repair Activity: Per Instructions section Lifting: No more than 10 pounds Bathing Comment: may shower starting 06/24/21; no soaking in tubs/pools Exercise/Sports: Wait until after follow-up appointment Driving/Machine Use: no driving while taking narcotic for pain; wait until cleared by surgeon Non-emergency contact: Surgeon Call non-emergency contact if: you have any medication questions, your symptoms worsen, your pain is not controlled, your pain is concerning for you, you have a fever, your temperature is above 101.5, your wound has increased redness, your wound has increased drainage and your wound pain has increased Follow-up/Referrals: Carl Shankar MD [Physician] - 07/07/21 10:15 am (cystoscopy) Harjit Donato MD, FACS [Surgeon] - 07/05/21 3:00 pm (Please call to schedule follow up in clinic within 1 week) Jordana Pemberton DO [Primary Care Provider] - Diet: Regular Addtl Attending Provider Instructions: Pending Studies at Discharge: No Stand-Alone Forms: My [facility] Medications and DC Order Prescriptions: New oxycodone-acetaminophen [Percocet] 5-325 mg tablet 1 - 2 tab PO Q4H PRN (Reason: pain, initial therapy, max 6 daily) Qty: 18 RF: 0 Continued atorvastatin 20 mg tablet 20 mg PO QAM RF: 0 biotin 1 mg capsule 1 mg PO QAM RF: 0 cholecalciferol (vitamin D3) 25 mcg (1,000 unit) tablet 25 mcg PO QAM RF: 0 epinephrine 0.1 mg/mL syringe 0.1 mg subcut Q30M PRN (Reason: Allergic Reaction) RF: 0 koykrehznzz-zjmymgcqx-ujt C-Mn [Glucosamine Chondroitin MaxStr] 500-400 mg capsule 1 cap PO QAM RF: 0 hydrochlorothiazide 25 mg tablet 25 mg PO QAM RF: 0 Probiotic Digestive Care 20 billion cell capsule 1 cell PO QAM RF: 0 pantoprazole 40 mg tablet,delayed release (DR/EC) 40 mg PO QAM RF: 0 telmisartan 40 mg tablet 40 mg PO QAM RF: 0 multivitamin Tablet 1 tab PO QAM RF: 0 magnesium 200 mg tablet 200 mg PO QAM RF: 0 aspirin 325 mg Tablet 325 mg PO QAM RF: 0 metoprolol tartrate 50 mg Tablet 50 mg PO BID RF: 0 vitamin E 400 unit Tablet 400 unit PO QAM RF: 0 psyllium Packet 1 packet PO QPM RF: 0 potassium 99 mg Tablet 99 mg PO DAILY PRN (Reason: Other) RF: 0 Discontinued neomycin 500 mg tablet 1 g PO .COMPLEX Qty: 6 RF: 0 metronidazole 500 mg tablet 500 mg PO .COMPLEX Qty: 3 RF: 0 No Action acetaminophen-codeine 300-30 mg tablet 1 tab PO Q6H PRN (Reason: pain, for ongoing therapy, max 6tabs/day) Qty: 15 RF: 0 Discharge Orders: Discharge Order (Routine); Ordered 06/28/21 Ordered By: Louis Matta/Other Patient Handouts: Low-Fiber Diet Admission Data Admit Date/Time: 06/23/21 12:07 Attending Provider: Harjit Donato Admit Provider: Harjit Donato Primary Care Provider: Jordana Pemberton Other Providers: Christopher Nelson ; Carl Shankar ; Matthew Mack ; Ileana Gordon ; Howard Meza ; Lara Gonzalez Melissa A. ; Riya Caldera ; Triston Moya ; Nayan Torres ; Millie Resendez ; Felicia Caldera ; James Infante Other Interventions: Discharge Summary Assessment (RN) Last Done: 06/28/21 14:41 Coding Level of Care Code D/C DAY MANAGEMENT <30 MINS Diagnoses Hernia, incisional K43.2
== END 2021-06-28 16:37 | disposition home or self-care (01) | DRG 355 ==
LOC: ASU 07:00 → PACUINP 12:07 → 3N 13:57
DX: Z83.3 Family history of diabetes mellitus; Z85.51 Personal history of malignant neoplasm of bladder; Z79.82 Long term (current) use of aspirin; R31.0 Gross hematuria; K43.2 Incisional hernia without obstruction or gangrene; I10 Essential (primary) hypertension; Z87.891 Personal history of nicotine dependence; E78.5 Hyperlipidemia, unspecified; Z86.73 Personal history of transient ischemic attack (TIA), and cerebral infarction without residual deficits

== ENCOUNTER 2021-07-07 07:04 | Inpatient (IN) ==
--- NOTE | 2021-07-07 07:50 | Emergency Department Note ---
History of Present Illness General Chief complaint: Wound Dehiscence Stated complaint: BLEEDING OUT OF DRAINAGE AREA Time Seen by Provider: 07/07/21 07:16 History of Present Illness 70-year-old male presents to the ED with a chief complaint of a serosanguineous and possibly a little purulent discharge from his right lower abdomen where he had a drain previously removed. The patient states that he had abdominal reconstructive surgery [address] Catalan. The rigo were supposed to be removed a couple of days ago but they left them in place. Patient states that he had been sleeping in a recliner but last night slept in the bed. He states that he awoke around 2 AM with extreme amount of drainage coming out of the area where the right lower quadrant drain was previously in place. No other complaints at this time. Denies any fevers. No abdominal pains. No nausea or vomiting. Home Medications Medication Instructions Recorded Confirmed Type Lactobacillus rhamnosus GG 20 1 cell PO QAM 03/03/21 07/07/21 History billion cell capsule (Probiotic Digestive Care) atorvastatin 20 mg tablet 20 mg PO QAM 03/03/21 07/07/21 History biotin 1 mg capsule 1 mg PO QAM 03/03/21 07/07/21 History cholecalciferol (vitamin D3) 25 25 mcg PO QAM 03/03/21 07/07/21 History mcg (1,000 unit) tablet epinephrine 0.1 mg/mL injection 0.1 mg SUBCUT Q30M PRN 03/03/21 07/07/21 History syringe bvdukcemshj-[id number] C-Mn 500 1 cap PO QAM cap 03/03/21 07/07/21 History mg-400 mg capsule (Glucosamine Chondroitin Maximum Strength) hydrochlorothiazide 25 mg tablet 25 mg PO QAM 03/03/21 07/07/21 History magnesium 200 mg tablet 200 mg PO QAM 03/07/21 07/07/21 History multivitamin 1 tab PO QAM 03/07/21 07/07/21 History pantoprazole 40 mg tablet,delayed 40 mg PO QAM 03/07/21 07/07/21 History release telmisartan 40 mg tablet 40 mg PO QAM 03/07/21 07/07/21 History aspirin 325 mg tablet 325 mg PO QAM 06/17/21 07/07/21 History metoprolol tartrate 50 mg tablet 50 mg PO BID 06/17/21 07/07/21 History psyllium 1 packet PO QPM 06/17/21 07/07/21 History hydrocodone 5 mg-acetaminophen 325 1 tab PO Q6H PRN 07/07/21 07/07/21 History mg tablet potassium citrate 99 mg capsule 99 mg PO QAM 07/07/21 07/07/21 History vitamin E 400 unit capsule 400 unit PO QAM 07/07/21 07/07/21 History Allergies Allergy/AdvReac Type Severity Reaction Status Date / Time peanut Allergy Unknown ANAPHYLAXIS Verified 07/07/21 08:15 Past Med/Surg History Medical History Cancer Bladder Cardiac murmur "Slight" murmur GERD (gastroesophageal reflux disease) Hiatal hernia Hyperlipidemia Hypertension Stroke 10 years ago, no residual issues Surgical History History of bladder surgery r/t cancer History of colonoscopy 2021 History of esophagogastroduodenoscopy (EGD) History of herniorrhaphy UMBILICAL History of incisional hernia repair (06/23/21) p Open Repair Large Incisional Hernia Compartment Separation with Mesh(Not Applicable) - Harjit Donato MD, FACS Open repair possible fenestration of incisional hernia with Marlex mesh reinforcement compartment separation lysis of abdominal adhesions 06/23/2021 Family History Father Family history of diabetes mellitus Mother Family history of diabetes mellitus Social History Smoking Status: Never smoker Second Hand Exposure: No; Hx Alcohol Use: Yes Hx Substance Use: No Preferred Language: Greek Communication Ability: Effective Visual Impairment: No Limitations Fuse Spooler Required: No Beliefs That Will Affect Care: None Current Living Situation: Spouse and Family current occupational status: employed current occupation: RETIRED/WOR[employer] Feels Safe at Home: Yes Assistive Devices: None Review of Systems A total of 10 systems reviewed and were otherwise negative Physical Exam Vital Signs Vital Signs - 24 hr 07/07/21 07:09 07/07/21 07:30 Temperature 36.3 C L Temperature Source Temporal Artery Scan Pulse Rate 80 Pulse Rate [Finger] 73 Respiratory Rate 18 18 Respiratory Effort / Characteristics Non-Labored Non-Labored Spontaneous Respiratory Depth Normal Normal Respiratory Pattern Regular Blood Pressure 121/76 Blood Pressure [Right Arm] 110/68 Blood Pressure Mean 91 Blood Pressure Mean [Right Arm] 82 Pulse Oximetry 98 98 Oxygen Delivery Method Room Air Room Air Sepsis Recent Fever Within 48 Hours No Sepsis New/Unexplained Change in Mental Status No Sepsis Action Taken by Nursing No Action Required CONSTITUTIONAL/VITAL SIGNS: Reviewed / noted above. GENERAL: Non-toxic in appearance. INTEGUMENTARY: Warm, dry, and [place]. HEAD: Normocephalic. EYES: without scleral icterus or trauma. ENT/OROPHARYNX: clear and moist. RESPIRATORY: Clear to auscultation bilaterally. No increased work of breathing. CARDIOVASCULAR: Regular rate and rhythm. GI/ABDOMEN: There is some ecchymosis primarily on the right compared to the left. There are rigo in place in the vertical wound that extends from the epigastric area to the suprapubic area. A bandage did have some serosanguineous and mildly purulent fluid within it. There was no fluid expressible through the opening where the right lower quadrant drain was present. EXTREMITIES: Warm and well perfused. NEUROLOGICAL: Intact without focal deficits. PSYCHIATRIC: normal affect. MUSCULOSKELETAL: Normally developed with good muscle tone. TRIAGE NURSING DOCUMENTATION REVIEWED. Medical Decision Making Medical Records Attestation: I reviewed the patient's medical records. Home Medications Current Medication List: was personally reviewed by me Laboratory Data Attestation: I reviewed the patient's lab results. Result diagrams: 07/07/21 08:20 07/07/21 08:20 Lab Results 07/07/21 07/07/21 Range/Units 08:20 08:20 WBC 12.60 H (4.8-10.8) K/uL RBC 3.26 L (4.7-6.1) M/uL Hgb 9.8 L (14.0-18.0) g/dL Hct 30.3 L (42-52) % MCV 92.9 (80-100) fL MCH 30.1 (25-34) pg MCHC 32.3 (32-36) g/dL RDW Std Deviation 51.9 H (36.4-46.3) fL RDW Coeff of Valentin 15.2 H (11.5-14.5) % Plt Count 227 (130-400) K/uL MPV 9.4 (7.4-10.4) fL Immature Gran % (Auto) 0.2 % Neut % (Auto) 75.0 % Lymph % (Auto) 6.7 % Hartley % (Auto) 8.5 % Eos % (Auto) 9.5 % Baso % (Auto) 0.1 % Neut # (Auto) 9.45 H (1.4-6.5) K/uL Lymph # (Auto) 0.84 L (1.2-3.4) K/uL Hartley # (Auto) 1.07 H (0.11-0.59) K/uL Eos # (Auto) 1.20 H (0-0.5) K/uL Baso # (Auto) 0.01 (0-0.2) K/uL Immature Gran # (Auto) 0.03 H (0.00-0.02) K/uL Sodium 133 L (136-145) mmol/L Potassium 3.8 (3.5-5.1) mmol/L Chloride 101 (98-107) mmol/L Carbon Dioxide 24 (21-32) mmol/L Anion Gap 8 (3-11) BUN 13 (6-23) mg/dl Creatinine 0.97 (0.6-1.4) mg/dl Est Cr Clr Drug Dosing 82.4 ml/min Est GFR ( Amer) 92.6 ml/min Est GFR (Non-Af Amer) 79.9 ml/min BUN/Creatinine Ratio 13.4 (10-20) Glucose 129 H (70-99(Fasting)) mg/dl Calcium 8.9 (8.5-10.1) mg/dl Total Bilirubin 1.2 H (0.2-1.0) mg/dl AST 11 L (13-39) U/L ALT 10 (7-52) U/L Alkaline Phosphatase 44 (34-104) U/L Total Protein 7.1 (6.0-8.3) gm/dl Albumin 3.7 (3.4-5.0) gm/dl Globulin 3.4 (2.5-4.0) gm/dl Albumin/Globulin Ratio 1.1 (0.9-2) MDM Narrative Patient presents to the ED with a chief complaint of drainage from a right lower quadrant drain wound that occurred this morning. He had abdominal reconstructive surgery 2 weeks ago. He does have ecchymosis in the area with a little bit of erythema. General surgery service did see the patient in the ED. They are admitting the patient for some IV antibiotics and further evaluation the patient's white blood cell count was elevated at 12.6. Chemistry panel was unremarkable Impression & Plan Abdominal infection Discharge Plan Visit Data Chief Complaint: Wound Dehiscence Stated Complaint: BLEEDING OUT OF DRAINAGE AREA ED Provider: Braydon Mar Discharge Problem: Abdominal infection Patient Disposition: Being Evaluated by Surgeon Forms Stand Alone Forms: [facility], Virtual Emergency Department, Important Visit Information Prescriptions Prescriptions: No Action atorvastatin 20 mg tablet 20 mg PO QAM RF: 0 biotin 1 mg capsule 1 mg PO QAM RF: 0 cholecalciferol (vitamin D3) 25 mcg (1,000 unit) tablet 25 mcg PO QAM RF: 0 epinephrine 0.1 mg/mL syringe 0.1 mg subcut Q30M PRN (Reason: Allergic Reaction) RF: 0 lceuktnxact-htaffemob-ysa C-Mn [Glucosamine Chondroitin MaxStr] 500-400 mg capsule 1 cap PO QAM RF: 0 hydrochlorothiazide 25 mg tablet 25 mg PO QAM RF: 0 Probiotic Digestive Care 20 billion cell capsule 1 cell PO QAM RF: 0 pantoprazole 40 mg tablet,delayed release (DR/EC) 40 mg PO QAM RF: 0 telmisartan 40 mg tablet 40 mg PO QAM RF: 0 multivitamin Tablet 1 tab PO QAM RF: 0 magnesium 200 mg tablet 200 mg PO QAM RF: 0 aspirin 325 mg Tablet 325 mg PO QAM RF: 0 metoprolol tartrate 50 mg Tablet 50 mg PO BID RF: 0 psyllium Packet 1 packet PO QPM RF: 0 vitamin E 400 unit Capsule 400 unit PO QAM RF: 0 potassium citrate 99 mg Capsule 99 mg PO QAM RF: 0 hydrocodone-acetaminophen 5-325 mg Tablet 1 tab PO Q6H PRN (Reason: Pain) RF: 0 Referrals Referrals: Jordana Pemberton DO [Primary Care Provider] -
[2021-07-07 08:37] LABS: Basophils # (auto) 0.01 K/uL (0-0.2); Basophils % (auto) 0.1 %; Eosinophils % (auto) 9.5 %; Hematocrit (blood only) 30.3 % (42-52); Hemoglobin 9.8 g/dL (14.0-18.0); Immature Granulocytes # (auto) 0.03 K/uL (0.00-0.02); Immature Granulocytes % (auto) 0.2 %; Lymphocytes # (auto) 0.84 K/uL (1.2-3.4); Lymphocytes % (auto) 6.7 %; Mean Corpuscular Hemoglobin 30.1 pg (25-34); Mean Corpuscular Hgb Conc 32.3 g/dL (32-36); Mean Corpuscular Volume 92.9 fL (80-100); Mean Platelet Volume 9.4 fL (7.4-10.4); Monocytes # (auto) 1.07 K/uL (0.11-0.59); Monocytes % (auto) 8.5 %; Neutrophils # (auto) 9.45 K/uL (1.4-6.5); Platelet Count 227 K/uL (130-400); RDW Coefficient of Variation 15.2 % (11.5-14.5); RDW Standard Deviation 51.9 fL (36.4-46.3); Red Blood Count 3.26 M/uL (4.7-6.1)
--- NOTE | 2021-07-07 08:57 | History & Physical Report ---
Date of Service July 07, 2021 Assessment & Plan (1) Wound drainage: Plan: This is a 70y M who is recently s/p a large incisional hernia repair with component separation and mesh placement with Dr. Donato on 06/23/21. He presents to the ER today due to a large amount of bloody possibly milky appearing drainage from his old R sided TYSON drain site starting early this AM. In the ER labs reveal a WBC 12 and a Hbg stable at 9.8 (8.8). On exam his abdominal rigo are intact to the midline with surrounding ecchymosis. He has some inferior incisional erythema. Old R drain site is open with scant bloody drainage with patient lying flat. His VSS and patient is afebrile. At this time we will admit the patient under observation status to monitor wound drainage and start patient on IV abx. IV unasyn will be started. Okay for diet as tolerates. We will monitor patient's wound and drainage & WBC and see how he fairs. Pt seen/examined with Dr. Donato in the ER. History of Present Illness Primary Care Provider: Jordana Pemberton DO This is a 70y M who is recently s/p a large incisional hernia repair with component separation and mesh placement with Dr. Donato on 06/23/21. Post op the patient's Hbg slowly drifted some was monitored and remained 8-9's without the need for transfusion. He had some hematuria that self resolved on POD#1 and urology evaluated the pt and scheduled him f/u for his history of bladder cancer. His diet was advanced as tolerated and pain managed with prn pain medications. TYSON drain x2 was removed and the patient was discharged to home 06/29/21 without event. The patient was seen in the clinic on 07/05 and he was doing well without any obvious issues. He was instructed to follow up in a week for staple removal and f/u with the surgeon. Very early this AM the patient reports a moderate amount of bloody drainage leaking from his R TYSON drain incision. The states it was bright red blood with some milky appearance to it. He denies any fevers/chills. Abdominal pain controlled. He is passing flatus, having intermittent BM's. Not much appetite since surgery. Allergies Allergy/AdvReac Type Severity Reaction Status Date / Time peanut Allergy Unknown ANAPHYLAXIS Verified 07/07/21 08:15 Home Medications Medication Instructions Recorded Confirmed Type Lactobacillus rhamnosus GG 20 1 cell PO QAM 03/03/21 07/07/21 History billion cell capsule (Probiotic Digestive Care) atorvastatin 20 mg tablet 20 mg PO QAM 03/03/21 07/07/21 History biotin 1 mg capsule 1 mg PO QAM 03/03/21 07/07/21 History cholecalciferol (vitamin D3) 25 25 mcg PO QAM 03/03/21 07/07/21 History mcg (1,000 unit) tablet epinephrine 0.1 mg/mL injection 0.1 mg SUBCUT Q30M PRN 03/03/21 07/07/21 History syringe [id number]-[id number] C-Mn 500 1 cap PO QAM cap 03/03/21 07/07/21 History mg-400 mg capsule (Glucosamine Chondroitin Maximum Strength) hydrochlorothiazide 25 mg tablet 25 mg PO QAM 03/03/21 07/07/21 History magnesium 200 mg tablet 200 mg PO QAM 03/07/21 07/07/21 History multivitamin 1 tab PO QAM 03/07/21 07/07/21 History pantoprazole 40 mg tablet,delayed 40 mg PO QAM 03/07/21 07/07/21 History release telmisartan 40 mg tablet 40 mg PO QAM 03/07/21 07/07/21 History aspirin 325 mg tablet 325 mg PO QAM 06/17/21 07/07/21 History metoprolol tartrate 50 mg tablet 50 mg PO BID 06/17/21 07/07/21 History psyllium 1 packet PO QPM 06/17/21 07/07/21 History hydrocodone 5 mg-acetaminophen 325 1 tab PO Q6H PRN 07/07/21 07/07/21 History mg tablet potassium citrate 99 mg capsule 99 mg PO QAM 07/07/21 07/07/21 History vitamin E 400 unit capsule 400 unit PO QAM 07/07/21 07/07/21 History Past Med/Surg History Medical History Cancer Bladder Cardiac murmur "Slight" murmur GERD (gastroesophageal reflux disease) Hiatal hernia Hyperlipidemia Hypertension Stroke 10 years ago, no residual issues Surgical History History of bladder surgery r/t cancer History of colonoscopy 2021 History of esophagogastroduodenoscopy (EGD) History of herniorrhaphy UMBILICAL History of incisional hernia repair (06/23/21) p Open Repair Large Incisional Hernia Compartment Separation with Mesh(Not Applicable) - Harjit Donato MD, FACS Open repair possible fenestration of incisional hernia with Marlex mesh reinforcement compartment separation lysis of abdominal adhesions 06/23/2021 Family History Father Family history of diabetes mellitus Mother Family history of diabetes mellitus Social History Smoking Status: Never smoker Second Hand Exposure: No; Hx Alcohol Use: Yes Hx Substance Use: No Preferred Language: Yi Communication Ability: Effective Visual Impairment: No Limitations Fry Cook Required: No Beliefs That Will Affect Care: None Current Living Situation: Spouse and Family current occupational status: employed current occupation: RETIRED/[employer] Feels Safe at Home: Yes Assistive Devices: None Review of Systems Constitutional: no fever and no chills low appetite Gastrointestinal: + constipation and + problem reported (bloody drainage from incision); no abdominal pain, no nausea and no vomiting Physical Exam Physical Exam: awake/alert, no acute distress Gastrointestinal (Abdomen): Inspection/Auscultation: + abdominal surgical incision (midline rigo in place; + ecchymosis over abdomen) incision where R TYSON drain was is open with scant bloody drainage noted with pt lying down. Some erythema noted to inferior portion of incision Results & Data Results & Data ([facility]) Vital Signs (Past 12 Hours) Vital Signs Temp Pulse Pulse Resp BP BP Pulse Ox 07/07/21 07:30 73 18 110/68 98 07/07/21 07:09 36.3 C L 80 18 121/76 98 PG Care Time/CCT Total # of Minutes Spent Total Time Spent with Patient: Total time spent is greater than 50% in coordination of care (as documented) at patient's floor/unit and/or counseling patient: Coding Level of Care Code None Diagnoses Wound drainage L24.A9
[2021-07-07 09:07] LABS: Albumin Globulin Ratio 1.1 (0.9-2); Albumin Level 3.7 gm/dl (3.4-5.0); BUN Creatinine Ratio 13.4 (10-20); Bilirubin,Total 1.2 mg/dl (0.2-1.0); Calcium 8.9 mg/dl (8.5-10.1); Creatinine Clr Calc Pharmacy 82.4 ml/min; Est GFR (African American) 92.6 ml/min; Est GFR (Non-African American) 79.9 ml/min; Globulin 3.4 gm/dl (2.5-4.0); Potassium 3.8 mmol/L (3.5-5.1); Total Protein 7.1 gm/dl (6.0-8.3)
[2021-07-07] MEDS ORDERED: ONDANSETRON INJ 2 MG/ML 2 ML VIAL IV PRN (11:45)
[2021-07-07] MEDS ORDERED: MoRPHine SULFATE 4 MG/ML 1 ML CARP\\VIAL IV PRN (11:45)
[2021-07-07] MEDS ORDERED: MoRPHine SULFATE 2 MG/ML CARP IV PRN (11:45)
[2021-07-07] MEDS: oxyCODONE/ACETAMINOPHEN 5mg/325mg TAB PO PRN ×3 (12:30→22:19)
[2021-07-07] MEDS: PANTOprazole 40 MG TAB PO SCH (12:31)
[2021-07-07] MEDS: METOPROLOL TARTRATE 50 MG TAB PO SCH ×2 (12:31→22:20)
[2021-07-07] MEDS: MULTIVITAMIN TAB PO SCH (12:31)
[2021-07-07] MEDS: ASPIRIN 325 MG ECTAB PO SCH (12:32)
[2021-07-07] MEDS: ATORVASTATIN 20 MG TAB PO SCH (12:32)
[2021-07-07] MEDS: hydroCHLOROthiazide 25 MG TAB PO SCH (12:32)
[2021-07-07] MEDS: MAGNESIUM OXIDE 400 MG TAB PO SCH (12:32)
[2021-07-07] MEDS: TELMISARTAN 40 MG TAB PO SCH (12:32)
[2021-07-07] MEDS: ceFAZolin 2000MG 2,000 MG/15 ML SYR IV SCH ×2 (13:05→22:27)
[2021-07-08] MEDS: ceFAZolin 2000MG 2,000 MG/15 ML SYR IV SCH ×3 (05:37→21:33)
[2021-07-08] MEDS: oxyCODONE/ACETAMINOPHEN 5mg/325mg TAB PO PRN ×4 (05:37→21:32)
[2021-07-08] MEDS ORDERED: MAGNESIUM HYDROXIDE SUSP 30 ML UDC PO PRN (07:02)
--- NOTE | 2021-07-08 07:09 | Surgery Progress Note ---
Date of Service July 08, 2021 Assessment & Plan (1) Wound drainage: Plan: PAD#1 rigo the most inferior aspect of the incision approximately 8 of them were removed Dressing was changed in the right lower quadrant drainage site At this point discussed with the patient that we will keep him here today see how he progresses he would like something to move his bowels and he would like to take a shower We will continue him on antibiotic Discussed with the patient also that obviously concerned about the mesh that was used to fix his large hernia therefore we will continue on antibiotics there is no reason to open up the incision there is no area of fluctuance that I can appreciate in that the drain site in the right lower quadrant will probably continue to drain All question answered This is a 70y M who is recently s/p a large incisional hernia repair with component separation and mesh placement with Dr. Donato on 06/23/21. He presents to the ER today due to a large amount of bloody possibly milky appearing drainage from his old R sided TYSON drain site starting early this AM. In the ER labs reveal a WBC 12 and a Hbg stable at 9.8 (8.8). On exam his abdominal rigo are intact to the midline with surrounding ecchymosis. He has some infer ior incisional erythema. Old R drain site is open with scant bloody drainage with patient lying flat. His VSS and patient is afebrile. At this time we will admit the patient under observation status to monitor wound drainage and start patient on IV abx. IV unasyn will be started. Okay for diet as tolerates. We will monitor patient's wound and drainage & WBC and see how he fairs. Pt seen/examined with Dr. Donato in the ER. Admission and Anticipated Discharge Date Admission Date: July 07, 2021 Subjective Feels much better than yesterday actually ate very well yesterday some abdominal discomfort mostly abdominal wall passing significant amount of flatus but no bow el movement Physical Exam Physical Exam: Alert comfortable in bed in no acute distress The abdomen large hematoma in the right lower quadrant area unchanged significant amount of ecchymosis around the incision there is no drainage from the incision rigo are intact except in the most inferior aspect there is some reaction to the rigo Had moderate amount of drainage from the Nick drain sites in the right lower quadrant the characteristic appreciated this morning and serosanguineous nonpurulent no odor appreciated Results & Data ([facility]) Vital Signs (Past 12 Hours) Vital Signs Temp Pulse Resp BP Pulse Ox 07/07/21 22:15 36.8 C 81 16 131/82 98 PG Care Time/CCT Total # of Minutes Spent Total Time Spent with Patient: Total time spent is greater than 50% in coordination of care (as documented) at patient's floor/unit and/or counseling patient: Coding Level of Care Code 51084 Subseq Hosp Care Lvl 2 Diagnoses Wound drainage L24.A9
[2021-07-08 07:56] LABS: Basophils # (auto) 0.02 K/uL (0-0.2); Basophils % (auto) 0.3 %; Eosinophils # (auto) 1.35 K/uL (0-0.5); Eosinophils % (auto) 18.4 %; Hematocrit (blood only) 29.2 % (42-52); Hemoglobin 9.4 g/dL (14.0-18.0); Immature Granulocytes # (auto) 0.03 K/uL (0.00-0.02); Immature Granulocytes % (auto) 0.4 %; Lymphocytes # (auto) 0.61 K/uL (1.2-3.4); Lymphocytes % (auto) 8.3 %; Mean Corpuscular Hemoglobin 29.8 pg (25-34); Mean Corpuscular Hgb Conc 32.2 g/dL (32-36); Mean Corpuscular Volume 92.7 fL (80-100); Mean Platelet Volume 9.5 fL (7.4-10.4); Monocytes # (auto) 0.53 K/uL (0.11-0.59); Monocytes % (auto) 7.2 %; Neutrophils % (auto) 65.4 %; Platelet Count 224 K/uL (130-400); RDW Standard Deviation 50.9 fL (36.4-46.3); Red Blood Count 3.15 M/uL (4.7-6.1); White Blood Count 7.34 K/uL (4.8-10.8)
[2021-07-08 08:20] LABS: BUN Creatinine Ratio 15.1 (10-20); Calcium 8.7 mg/dl (8.5-10.1); Creatinine Clr Calc Pharmacy 85.9 ml/min; Est GFR (African American) 97.4 ml/min; Est GFR (Non-African American) 84.1 ml/min; Potassium 3.4 mmol/L (3.5-5.1)
[2021-07-08] MEDS: PANTOprazole 40 MG TAB PO SCH (09:08)
[2021-07-08] MEDS: METOPROLOL TARTRATE 50 MG TAB PO SCH ×2 (09:08→21:33)
[2021-07-08] MEDS: MULTIVITAMIN TAB PO SCH (09:08)
[2021-07-08] MEDS: ATORVASTATIN 20 MG TAB PO SCH (09:09)
[2021-07-08] MEDS: ASPIRIN 325 MG ECTAB PO SCH (09:09)
[2021-07-08] MEDS: hydroCHLOROthiazide 25 MG TAB PO SCH (09:09)
[2021-07-08] MEDS: TELMISARTAN 40 MG TAB PO SCH (09:09)
[2021-07-08] MEDS: MAGNESIUM OXIDE 400 MG TAB PO SCH (09:09)
[2021-07-09] MEDS: oxyCODONE/ACETAMINOPHEN 5mg/325mg TAB PO PRN ×3 (02:22→12:13)
--- NOTE | 2021-07-09 05:30 | Surgery Progress Note ---
Date of Service July 09, 2021 Assessment & Plan (1) Wound drainage: Plan: Patient is status post incisional hernia repair by Dr. Donato with readmission secondary to wound drainage Continue antibiotics in the form of Ancef Continue local wound care Continue activity as tolerated Admission and Anticipated Discharge Date Admission Date: July 07, 2021 Subjective Patient notes he is doing well. He is tolerating diet. He is ambulating without difficulty. He notes his bowels have been moving and he is voiding without difficulty. He denies any fevers, shakes, chills. He denies any shortness of breath. He has minimal pain at his surgical incision. Physical Exam Gastrointestinal (Abdomen): Abdomen is soft with minimal distention. Bowel sounds are present. There is ecchymosis noted on patient's abdominal wall. His incision appears intact. Area of drainage has dressing that is clean, dry, intact (will take down dressing at time of rounds with attending physician) Results & Data ([facility]) Vital Signs (Past 12 Hours) Vital Signs Temp Pulse Resp BP Pulse Ox 07/08/21 22:29 36.7 C 76 18 138/77 99 07/08/21 21:31 139/79 PG Care Time/CCT Total # of Minutes Spent Total Time Spent with Patient: Total time spent is greater than 50% in coordination of care (as documented) at patient's floor/unit and/or counseling patient: Coding Level of Care Code None Diagnoses Wound drainage L24.A9
[2021-07-09] MEDS: ceFAZolin 2000MG 2,000 MG/15 ML SYR IV SCH (05:42)
[2021-07-09] MEDS: METOPROLOL TARTRATE 50 MG TAB PO SCH (07:55)
[2021-07-09] MEDS: MULTIVITAMIN TAB PO SCH (07:56)
[2021-07-09] MEDS: ASPIRIN 325 MG ECTAB PO SCH (07:56)
[2021-07-09] MEDS: ATORVASTATIN 20 MG TAB PO SCH (07:56)
[2021-07-09] MEDS: TELMISARTAN 40 MG TAB PO SCH (07:56)
[2021-07-09] MEDS: MAGNESIUM OXIDE 400 MG TAB PO SCH (07:56)
[2021-07-09] MEDS: PANTOprazole 40 MG TAB PO SCH (07:56)
[2021-07-09] MEDS: hydroCHLOROthiazide 25 MG TAB PO SCH (07:56)
[2021-07-09] MEDS ORDERED: PERCOCET 5/325MG HOMEPACK PO ONE (08:47)
--- NOTE | 2021-07-09 08:52 | Surgery Progress Note ---
Date of Service July 09, 2021 Assessment & Plan (1) Wound drainage: Plan: PAD#2 patient is anxious to go home he feels much better than when he first came in He would like to have just the Percocet her to to take home he try Tylenol # 3 prior to being admitted to the hospital said it helped a little bit but in the past that helped a lot more At this point the patient can be discharged instructions were given to him regarding wound care and follow-up in our office on Sunday We will prescribe him a few Percocet keep him on antibiotics and Keflex 500 mg every 6 hours sufficient Culture and sensitivity on the wound culture taken out on the are pending preliminary is a staph species To change the dressing in the right lower quadrant drain site as needed You may shower do not bathe If any new issues arise please contact us otherwise we will see you in office on Sunday PAD#1 rigo the most inferior aspect of the incision approximately 8 of them were removed Dressing was changed in the right lower quadrant drainage site At this point discussed with the patient that we will keep him here today see how he progresses he would like something to move his bowels and he would like to take a shower We will continue him on antibiotic Discussed with the patient also that obviously concerned about the mesh that was used to fix his large hernia therefore we will continue on antibiotics there is no reason to open up the incision there is no area of fluctuance that I can appreciate in that the drain site in the right lower quadrant will probably continue to drain All question answered This is a 70y M who is recently s/p a large incisional hernia repair with component separation and mesh placement with Dr. Donato on 06/23/21. He presents to the ER today due to a large amount of bloody possibly milky appearing drainage from his old R sided TYSON drain site starting early this AM. In the ER labs reveal a WBC 12 and a Hbg stable at 9.8 (8.8). On exam his abdominal rigo are intact to the midline with surrounding ecchymosis. He has some inferior incisional erythema. Old R drain site is open with scant bloody drainage with patient lying flat. His VSS and patient is afebrile. At this time we will admit the patient under observation status to monitor wound drainage and start patient on IV abx. IV unasyn will be started. Okay for diet as tolerates. We will monitor patient's wound and drainage & WBC and see how he fairs. Pt seen/examined with Dr. Donato in the ER. Admission and Anticipated Discharge Date Admission Date: July 07, 2021 Subjective 07/09/21 patient feels much better pain in his abdominal wall is subsided denies any chills or fever tolerating a regular diet his bowels have moved Patient notes he is doing well. He is tolerating diet. He is ambulating without difficulty. He notes his bowels have been moving and he is voiding without difficulty. He denies any fevers, shakes, chills. He denies any shortness of breath. He has minimal pain at his surgical incision. Physical Exam Physical Exam: He sitting at the side of the bed eating regular breakfast without any issues I examined him in the supine position the abdomen is benign except for fullness in the right lower quadrant where the hematoma is appears to be much softer than before there is no redness in the incision the rigo are still present the majority of the incision there is very little to no drainage at the Nick site in the right lower quadrant Results & Data ([facility]) Vital Signs (Past 12 Hours) Vital Signs Temp Pulse Pulse Resp BP Pulse Ox 07/09/21 07:30 36.7 C 68 20 127/75 99 07/08/21 22:29 36.7 C 76 18 138/77 99 07/08/21 21:31 139/79 PG Care Time/CCT Total # of Minutes Spent Total Time Spent with Patient: Total time spent is greater than 50% in coordination of care (as documented) at patient's floor/unit and/or counseling patient: Coding Level of Care Code None Diagnoses Wound drainage L24.A9
== END 2021-07-09 12:45 | disposition home or self-care (01) | DRG 921 ==
LOC: ED 07:04 → 3W 08:12